=== PATIENT | male | born 1960 | race Caucasian/White ===

== ENCOUNTER 2022-09-08 09:54 | Outpatient (REF) | payer OTHER, SELFPAY ==
[2022-09-08 10:15] LABS: MANUAL DIFF FLAG NO
[2022-09-08 10:28] LABS: Basophils Percent Auto 0.6 % (0-2); Eosinophils Absolute Auto 0.2 X10*3/uL (0.0-0.4); Eosinophils Percent Auto 3.3 % (0-4); Hematocrit 44.5 % (42.0-52.0); Hemoglobin 15.3 g/dl (14.0-18.0); Imm Gran Abs Auto 0.02 X10*3/uL (0.00-0.03); Imm Gran Pct Auto 0.3 % (0.0-0.4); Lymphocytes Absolute Auto 1.3 X10*3/uL (1.2-4.9); Lymphocytes Percent Auto 18.5 % (20-40); Mean Corpuscular HGB Conc 34.4 g/dl (31.0-36.0); Mean Corpuscular Hemoglobin 28.4 pg (27.0-33.0); Mean Corpuscular Volume 82.6 fL (80.0-98.0); Mean Platelet Volume 9.7 fL (9.4-12.4); Monocytes Absolute Auto 0.5 X10*3/uL (0.1-1.2); Monocytes Percent Auto 7.3 % (2-11); Neutrophils Absolute Auto 5.1 x10*3/uL (2.0-8.3); Platelet Count 266 X10*3/uL (160-400); Red Blood Count 5.39 X10*6/uL (4.60-5.80); White Blood Count 7.3 X10*3/uL (4.8-10.8)
[2022-09-08 11:16] LABS: Anion Gap 11 (12-20); Blood Urea Nitrogen 23 mg/dL (9-16); Calcium 9.5 mg/dL (8.4-10.2); Carbon Dioxide 27 mmol/L (22-29); Chloride 108 mmol/L (96-108); Estimated Glomerular Filt Rate 42; Glucose Random 173 mg/dL (60-115); Potassium 4.4 mmol/L (3.3-5.1); Sodium 142 mmol/L (135-145)
[2022-09-11 15:54] LABS: Calcium (PTHI) 9.4 mg/dL (8.6-10.3); PTHI 194 pg/mL (16-77)
[2022-09-13 00:38] LABS: Prot Elec - Albumin 4.2 g/dL (3.8-4.8); Prot Elec - Alpha1 0.4 g/dL (0.2-0.3); Prot Elec - Alpha2 0.8 g/dL (0.5-0.9); Prot Elec - Beta 1 0.5 g/dL (0.4-0.6); Prot Elec - Beta 2 0.4 g/dL (0.2-0.5); Prot Elec - Total Protein 7.2 g/dL (6.1-8.1)
== END 2022-09-08 09:55 | disposition home or self-care (01) ==
LOC: HO.LAB 09:54
PROVIDERS: PCP Family Medicine; Visit Provider Internal Medicine Hypertension Specialist
DX: N18.31 Chronic kidney disease, stage 3a (principal)
CPT/HCPCS: 36415; 80048; 83970; 84165; 85025

== ENCOUNTER 2022-11-16 13:57 | Outpatient (REF) | payer OTHER, SELFPAY ==
[2022-11-16 16:30] LABS: Anion Gap 14 (12-20); Blood Urea Nitrogen 17 mg/dL (9-16); Calcium 9.4 mg/dL (8.4-10.2); Carbon Dioxide 22 mmol/L (22-29); Chloride 109 mmol/L (96-108); Estimated Glomerular Filt Rate 51; Glucose Random 117 mg/dL (60-115); Potassium 3.9 mmol/L (3.3-5.1); Sodium 141 mmol/L (135-145)
== END 2022-11-16 13:58 | disposition home or self-care (01) ==
LOC: HO.LAB 13:57
PROVIDERS: PCP Family Medicine; Visit Provider Internal Medicine Hypertension Specialist
DX: N18.31 Chronic kidney disease, stage 3a (principal)
CPT/HCPCS: 36415; 80048

== ENCOUNTER → 2022-11-28 11:48 | Outpatient (BNVA) | payer OTHER, SELFPAY | PROVIDERS: PCP Family Medicine; Visit Provider Nurse Practitioner ==

== ENCOUNTER 2023-05-15 11:40 | Day surgery (SDC) | payer OTHER, SELFPAY ==
--- NOTE | 2023-05-14 09:26 | HO.ANESPROP2 ---
Documented by User: Camilla Torrez NP 05/14/23 09:28 HPI - Anesthesia Eval Consult details Narrative: 62yo M for Colonoscopy Anesthesia Pre-Procedure Meds Is the patient on any of the following meds?: Dulaglutide (Trulicity) PMFSH Active Problems Active Problems: All Active Problems (Updated 11/28/22 @ 11:56 by KENNEY García) Pre-op examination (Acute) Chronic, continuous use of opioids (Acute) Chronic pain syndrome (Acute) Depression (Acute) Chronic kidney disease, stage 3 (Acute) High cholesterol (Acute) Diabetes (Acute) Hypertension (Acute) Asthma (Acute) JOSEPH (obstructive sleep apnea) (Acute) Past Medical History Medical History Chronic, continuous use of opioids Chronic pain syndrome Depression Chronic kidney disease, stage 3 High cholesterol Diabetes Hypertension Asthma JOSEPH (obstructive sleep apnea) Surgical History Surgical History History of total left hip replacement H/O shoulder surgery H/O colonoscopy Social History Social History (Updated 11/28/22 @ 12:05 by Lanny Chinchilla [facility]) Alcohol intake: former Patient Tobacco Use Status: Never used Tobacco Are you DNR?: No Advance Directives: No Advance Directives Information Provided: Yes Nutrition Risks: No Nutritional Risk Meds Allergies Allergy/AdvReac Type Severity Reaction Status Date / Time lisinopril Allergy Severe Anaphylaxis Verified 05/15/23 13:32 shellfish derived Allergy Severe Anaphylaxis Verified 05/15/23 13:32 SOLO Inhibitors Allergy Unknown Unknown Verified 05/15/23 13:32 Home Medications Medication Instructions Recorded Confirmed Last Taken Type albuterol sulfate 90 mcg/actuation 2 puff inhalation Q6H PRN 11/28/22 05/15/23 Unknown History aerosol inhaler Respiratory Distress atorvastatin 20 mg tablet (Lipitor) 20 mg PO DAILY 11/28/22 05/15/23 Unknown History dulaglutide 3 mg/0.5 mL 3 mg subcut QWEEK 11/28/22 05/15/23 05/07/23 History subcutaneous pen injector (Trulicity) empagliflozin 25 mg-metformin ER 1 tab PO DAILY 11/28/22 05/15/23 Unknown History 1,000 mg tablet,extended release 24hr epinephrine 0.3 mg/0.3 mL 0.3 mg IM Q10M PRN Anaphylaxis 11/28/22 05/15/23 Unknown History injection syringe fluoxetine 40 mg capsule 40 mg PO DAILY 11/28/22 05/15/23 Unknown History hydrochlorothiazide 25 mg tablet 25 mg PO QAM 11/28/22 05/15/23 Unknown History insulin glargine 100 unit/mL 20 unit subcut DAILY 11/28/22 05/15/23 Unknown History subcutaneous solution (Lantus U-100 Insulin) losartan 25 mg tablet 25 mg PO DAILY 11/28/22 05/15/23 Unknown History oxycodone-acetaminophen 5 mg-325 1 tab PO TID PRN Pain 11/28/22 05/15/23 Unknown History mg tablet (Percocet) risperidone 0.5 mg tablet 0.5 mg PO DAILY 11/28/22 05/15/23 Unknown History Exam Pertinent Lab Results Pertinent Lab Results: Laboratory Tests 11/16/22 14:06 Sodium 141 Potassium 3.9 Chloride 109 H Carbon Dioxide 22 BUN 17 H Creatinine 1.40 Assessment and Plan Assessment Anesthesia Assessment: Chart Reviewed Documented by User: Leo Chen MD 05/17/23 07:07 HPI - Anesthesia Eval Anesthesia Pre-Procedure Meds If Yes to any meds - educate patient: Pt education - increased risk of aspiration PMFSH Past Medical History Medical History Chronic, continuous use of opioids Chronic pain syndrome Depression Chronic kidney disease, stage 3 High cholesterol Diabetes Hypertension Asthma JOSEPH (obstructive sleep apnea) Surgical History Surgical History History of total left hip replacement H/O shoulder surgery H/O colonoscopy Social History Social History (Updated 11/28/22 @ 12:05 by GILES Jacob) Alcohol intake: former Patient Tobacco Use Status: Never used Tobacco Are you DNR?: No Advance Directives: No Advance Directives Information Provided: Yes Nutrition Risks: No Nutritional Risk Meds Allergies Allergy/AdvReac Type Severity Reaction Status Date / Time lisinopril Allergy Severe Anaphylaxis Verified 05/15/23 13:32 shellfish derived Allergy Severe Anaphylaxis Verified 05/15/23 13:32 SOLO Inhibitors Allergy Unknown Unknown Verified 05/15/23 13:32 Home Medications Medication Instructions Recorded Confirmed Last Taken Type albuterol sulfate 90 mcg/actuation 2 puff inhalation Q6H PRN 11/28/22 05/15/23 Unknown History aerosol inhaler Respiratory Distress atorvastatin 20 mg tablet (Lipitor) 20 mg PO DAILY 11/28/22 05/15/23 Unknown History dulaglutide 3 mg/0.5 mL 3 mg subcut QWEEK 11/28/22 05/15/23 05/07/23 History subcutaneous pen injector (Trulicity) empagliflozin 25 mg-metformin ER 1 tab PO DAILY 11/28/22 05/15/23 Unknown History 1,000 mg tablet,extended release 24hr epinephrine 0.3 mg/0.3 mL 0.3 mg IM Q10M PRN Anaphylaxis 11/28/22 05/15/23 Unknown History injection syringe fluoxetine 40 mg capsule 40 mg PO DAILY 11/28/22 05/15/23 Unknown History hydrochlorothiazide 25 mg tablet 25 mg PO QAM 11/28/22 05/15/23 Unknown History insulin glargine 100 unit/mL 20 unit subcut DAILY 11/28/22 05/15/23 Unknown History subcutaneous solution (Lantus U-100 Insulin) losartan 25 mg tablet 25 mg PO DAILY 11/28/22 05/15/23 Unknown History oxycodone-acetaminophen 5 mg-325 1 tab PO TID PRN Pain 11/28/22 05/15/23 Unknown History mg tablet (Percocet) risperidone 0.5 mg tablet 0.5 mg PO DAILY 11/28/22 05/15/23 Unknown History
[2023-05-15 12:32] VITALS: BMI 27.7
[2023-05-15] MEDS: Lactated Ringers 1,000 ML 100 ML IVCONT (12:40)
[2023-05-15 13:08] LABS: Glucose, Whole Blood 75 mg/dL (60-115)
--- NOTE | 2023-05-15 13:14 | PC.NURSE ---
patient poc was 75. patient is asymptomatic in short stay. dr gupta updated that patient becomes symptomatic around 68 per patient and patient has one hour until procedure time. decision made by dr. mejía to hang dextrose 5% [address] mejía gave order to pharmacy. bilingual interpreter present to educate patient.
[2023-05-15] MEDS: Dextrose 5 % 50 ML 25 ML IV (13:16)
--- NOTE | 2023-05-15 13:17 | P.HPSUR_ITS ---
Pre-Procedural Eval Section A Date of Service: 05/15/23 The patient is an INPATIENT: No The History & Physical has been completed within 30 days and I have reviewed it.: No Section B Chief Complaint: Colon cancer screen Relevant Family History (Specify if Yes): No Relevant Social History: None Present Medications: see Short Stay Collaborative assessment Medical History: Significant History (JOSEPH Asthma Hypertension Diabetes High cholesterol Chronic kidney disease stage 3 Depression Chronic opioid use- prescriptive. Chronic pain low back and shoulders.) History of Previous Operations: Relevant previous surgery/procedure and date(s) (H/O colonoscopy H/O shoulder surgery History of total left hip replacement) Allergies: Allergies Allergy/AdvReac Type Severity Reaction Status Date / Time lisinopril Allergy Severe Anaphylaxis Verified 11/28/22 12:05 SOLO Inhibitors Allergy Unknown Unknown Verified 11/28/22 12:05 shellfish derived Allergy Unknown Unknown Verified 11/28/22 12:05 Review of Systems Sugical H&P ROS: Negative: Constitution, Cardiovascular, Respiratory and Gastrointestinal Exam Surgical H&P Exam: Normal: Heart, Normal: Lungs, Normal: Extremities and Normal: Abdomen Plan Diagnosis/Plan: Unchanged I have reviewed the history and physical and performed a pertinent physical examination on my patient. No changes have occurred unless specified. Time Spent With Patient Time: Total time managing care of this patient today ____ minutes.
--- NOTE | 2023-05-15 13:17 | P.OP_ITS ---
Operative Note Operative Note Date of Service: 05/15/23 Narrative: COLONOSCOPY TILL CECUM WITH SNARE POLYPECTOMY, SUBMUCOSAL INJECTION AND HEMOCLIP PLACEMENT Pre-op diagnosis: Colon cancer screening Post-op diagnosis:? Colon polyps, diverticulosis, hemorrhoids Endoscopist:? Shaista Cook MD Anesthesia:?MAC Consent: Indications for the procedure and potential complications of bleeding, perforation, reaction to medications and missed diagnosis were discussed with the patient and informed consent was obtained. Instrument: Olympus PCF H 190 L variable stiffness pediatric colonoscope Monitoring: Vital signs and clinical assessment, intermittent blood pressure monitoring, continuous EKG monitoring, Pulse oximetry and Carbon Dioxide monitoring were done throughout the procedure. Please see anesthesia flowsheet. Colon withdrawl time was 23 minutes. Procedure: The patient was placed in the left lateral decubitis position and pre-procedure medications were administered. After a digital rectal examination of the ano-rectum, the video colonoscope was inserted into the rectum and advanced through the colon to the cecum. The colonoscope was slowly withdrawn in a retrograde panoramic fashion and the colon mucosa was carefully examined including a retroflexed view of the rectum. Findings and interventions are described below. Procedure Difficulty: Without difficulty Findings: Terminal Ileum: Not evaluated Cecum: Two 4-5 mm sessile polyps - removed with a cold snare Ascending Colon: A 15 to 18 mm sessile polyp in the proximal AC at 75 cms. Polyp was raised with 3 cc of Eleview and removed with a hot snare. Polypectomy site was closed with 1 hemoclip Transverse Colon: Normal Descending Colon: Moderate diverticulosis Sigmoid Colon: A 5-6 mm sessile polyp - removed with a cold snare. Moderate diverticulosis Rectum: Normal Ano-rectum: Moderate internal hemorrhoids Colon preparation: Good after copious irrigation [place] Bowel Preparation Scale Right colon; 3 Transverse colon: 3 Left colon; 3 (0 = Unprepared colon segment with mucosa not seen due to solid stool that cannot be cleared. 1 = Portion of mucosa of the colon segment seen, but other areas of the colon segment not well seen due to staining, residual stool and/or opaque liquid. 2 = Minor amount of residual staining, small fragments of stool and/or opaque liquid, but mucosa of colon segment seen well. 3 = Entire mucosa of colon segment seen well with no residual staining, small fragments of stool or opaque liquid) Impression and Post Procedure Diagnosis: Colonoscopy Findings: Three small and one medium sized polyps removed Moderate diverticulosis seen in the lefy colon Moderate hemorrhoids on retroflexed exam. Plan: Await pathology results Patient has an appointment on 05/29/23 in the GI Clinic with Estelita Min NP. Repeat Colonoscopy interval based on path results - in 2-3 years if polyps are adenomatous and 10 years if polyps are hyperplastic. Above findings were reviewed with the patient and colon polyps and diverticulosis handouts were given in the discharge area
[2023-05-15 13:19] VITALS: BP 139/76; PULSE 93; RESP 18; TEMP 36.6; O2SAT 97
--- NOTE | 2023-05-15 13:27 | PC.NURSE ---
dr. mejía stated no follow up poc necessary after dextrose infustion.
[2023-05-15 14:54] VITALS: BP 100/63; PULSE 82; RESP 16; TEMP 36.3; O2SAT 97
[2023-05-15 15:09] VITALS: BP 118/68; PULSE 81; RESP 16; TEMP 36.3; O2SAT 100
== END 2023-05-15 15:35 | disposition home or self-care (01) ==
PROVIDERS: PCP Family Medicine; Visit Provider Internal Medicine Gastroenterology
PROC: 0DJD8ZZ Inspection of Lower Intestinal Tract, Via Natural or Artificial Opening Endoscopic (ICD-10-PCS; CPT 45378; principal; 2023-05-15 12:50)
DX: Z12.11 Encounter for screening for malignant neoplasm of colon (principal); D12.0 Benign neoplasm of cecum; D12.2 Benign neoplasm of ascending colon; D12.5 Benign neoplasm of sigmoid colon; K57.30 Diverticulosis of large intestine without perforation or abscess without bleeding; K64.8 Other hemorrhoids; E11.22 Type 2 diabetes mellitus with diabetic chronic kidney disease; I12.9 Hypertensive chronic kidney disease with stage 1 through stage 4 chronic kidney disease, or unspecified chronic kidney disease; N18.30 Chronic kidney disease, stage 3 unspecified; E78.5 Hyperlipidemia, unspecified; F11.20 Opioid dependence, uncomplicated; Z79.4 Long term (current) use of insulin; Z79.899 Other long term (current) drug therapy; Z79.02 Long term (current) use of antithrombotics/antiplatelets; Z79.85 Long-term (current) use of injectable non-insulin antidiabetic drugs
CPT/HCPCS: 45385; 45381; 82947; 88305; J2704

== ENCOUNTER → 2023-05-15 11:40 | Outpatient (BNV) | payer OTHER, SELFPAY | PROVIDERS: PCP Family Medicine; Visit Provider Internal Medicine Gastroenterology | DX: Z12.11 Encounter for screening for malignant neoplasm of colon (principal); D12.2 Benign neoplasm of ascending colon; D12.0 Benign neoplasm of cecum; K57.90 Diverticulosis of intestine, part unspecified, without perforation or abscess without bleeding | CPT/HCPCS: 45381; 45385 ==

== ENCOUNTER 2023-05-29 11:56 | Outpatient (AMB) | payer OTHER, SELFPAY ==
--- NOTE | 2023-05-29 11:57 | A.OFFVIS_ITS ---
Intake Vital Signs 05/29/23 12:19 Height 5 ft Weight 144 lb BMI 28.1 BP 136/71 Blood Pressure Location Lt brachial Position Sitting Pulse 75 Intake Visit Reasons: s/p colon Intake Note: Patient follow up for Colonoscopy results. Patient denies any other GI issues. Advertising Photographer Required: Yes Advertising Photographer Name: [facility] Accompanied by: Self / Same As Patient Allergies lisinopril Allergy (Severe, Verified 05/29/23 12:16) Anaphylaxis shellfish derived Allergy (Severe, Verified 05/29/23 12:16) Anaphylaxis SOLO Inhibitors Allergy (Unknown, Verified 05/29/23 12:16) Unknown HPI s/p colon HPI Details Assessment & Plan (1) Pre-op examination: Code(s): Z01.818 - Encounter for other preprocedural examination Plan: [place]er #[id number] Omayra He does not know his medications and this was not included in his med list. He denies any bowel or upper GI problems. There are no prior problems with or sedation. His JOSEPH and asthma are well controlled and he denies cardiac problems. No ID problems. There is no known FHX of CRC or polyps. (2) JOSEPH (obstructive sleep apnea): Code(s): G47.33 - Obstructive sleep apnea (adult) (pediatric) (3) Chronic kidney disease, stage 3: Code(s): N18.30 - Chronic kidney disease, stage 3 unspecified (4) Chronic, continuous use of opioids: Code(s): F11.90 - Opioid use, unspecified, uncomplicated Orders: Orders Colonoscopy - GI U se Only Today Z01.818 - Encounte r for other prepro cedural examinatio n Medications: New peg 3350-electroly geetha 236-22.74-6.74 -5.86 gram (Golyt shasha) until feca l effluent is princess r; do not exceed a total volume of 2 ,000 mL 240 mL PO Q10M 1 day 4,000 mL 0RF Z12.11 - Encounter for screening for malignant neoplas m of colon COLONOSCOPY 05/16/23 Findings: Terminal Ileum: Not evaluated Cecum: Two 4-5 mm sessile polyps - removed with a cold snare Ascending Colon: A 15 to 18 mm sessile polyp in the proximal AC at 75 cms. Polyp was raised with 3 cc of Eleview and removed with a hot snare. Polypectomy site was closed with 1 hemoclip Transverse Colon: Normal Descending Colon: Moderate diverticulosis Sigmoid Colon: A 5-6 mm sessile polyp - removed with a cold snare. Moderate diverticulosis Rectum: Normal Ano-rectum: Moderate internal hemorrhoids Colon preparation: Good after copious irrigation Impression and Post Procedure Diagnosis: Colonoscopy Findings: Three small and one medium sized polyps removed Moderate diverticulosis seen in the lefy colon Moderate hemorrhoids on retroflexed exam. Plan: Await pathology results Patient has an appointment on 05/29/23 in the GI Clinic with Estelita Min NP. Repeat Colonoscopy interval based on path results - in 2-3 years if polyps are adenomatous and 10 years if polyps are hyperplastic. BIOPSY Received: 05/16/23 Diagnosis A. Colon, ascending, polypectomy: Fragments of tubular adenoma; negative for high-grade dysplasia or carcinoma. B. Cecum, polypectomy: Fragments of tubular adenoma; negative for high-grade dysplasia or carcinoma. C. Colon, sigmoid, polypectomy: Tubular adenoma; negative for high-grade dysplasia or carcinoma . TODAY'S VISIT [place] Islander #Diana Bey He is agreeable to a 2 year recall. The procedure was well tolerated. The results were explained and the patient is agreeable to the follow-up interval as stated. The bowel pattern has returned to normal. Education was provided to tell any 1st degree relatives about their findings to be sure that they are screened by age 45. Educated that they will be put on a recall list when it is time for their repeat scope but should they move out of state or away from the hospital they will need to remember along with their primary to repeat the procedure in a timely fashion to avoid any adverse complications. [facility] Medical History (Updated 05/29/23 @ 11:58 by KENNEY García) Chronic, continuous use of opioids Chronic pain syndrome Depression Chronic kidney disease, stage 3 High cholesterol Diabetes Hypertension Asthma JOSEPH (obstructive sleep apnea) Surgical History History of total left hip replacement H/O shoulder surgery H/O colonoscopy Social History Alcohol intake: former Patient Tobacco Use Status: Never used Tobacco Review of Systems Const Denies fatigue, Denies fever(s), Denies night sweats, Denies poor appetite and Denies weight loss ENT Reports Normal hearing present, Denies dental pain, Denies dysphagia, Denies hearing loss, Denies mouth pain, Denies odynophagia, Denies throat swelling, Denies tongue swelling and Reports other (Dentition adequate) Card Reports no additional complaints Resp Reports no additional complaints GI Details: Denies abdominal pain, Denies melena, Denies bloating, Denies hematochezia, Denies constipation, Denies GI cramping, Denies dysphagia, Denies excessive flatus, Denies early satiety, Denies heartburn, Denies diarrhea, Denies nausea, Denies odynophagia, Denies vomiting and Denies hematemesis Skin/Breast Denies pruritus, Denies lesions, Denies rash and Denies jaundice Neuro Reports Normal hearing present and Denies Abnormal speech present Endo Denies fatigue Aller/Immun Denies throat swelling and Denies tongue swelling Physical Exam Vital Signs: Last Vital Signs Pulse 75 05/29/23 12:19 BP 136/71 05/29/23 12:19 BMI result Body Mass Index 28.1 Const General: cooperative, no acute distress, well developed and well groomed Nutritional Appearance: average body habitus and well nourished Orientation/consciousness: oriented to person, oriented to place and oriented to time Limitations: language barrier HEENT Head: Yes normocephalic and Yes atraumatic Eyes General: appearance normal, both eyes and all related structures Pupils: Equal, round and reactive pupils present Neck Neck: Yes normal visual inspection and Yes no lymphadenopathy Thyroid: Thyroid normal Resp Effort & Inspection: normal respiratory effort and able to speak in complete sentences Auscultation: clear to auscultation bilaterally Cardio Rate: regular rate Rhythm: regular rhythm Heart sounds: Normal, physiologic split S2 sound present Peripheral pulses: radial pulses present and posterior tibial pulses present GI Inspection: No distended and No Abdominal panniculus present Palpation (GI): Soft to palpation, nontender, no guarding, not rigid and No hepatosplenomegaly present Percussion: Yes normal to percussion Auscultation: normal bowel sounds Rectal Exam - Male: Yes deferred Skin General skin exam: no rashes or lesions noted, turgor normal, skin not dry, no jaundice, No spider nevi and no striae Rashes: no rashes Nails: normal Neuro General: oriented to person, oriented to place and oriented to time Cranial nerves: Yes Equal, round and reactive pupils present and Yes Normal hearing present Speech: No Abnormal speech present Extrem General: Yes normal to inspection, No clubbing, No cyanosis and No edema Psych Appearance: grossly normal and well kempt Mental Status: mental status grossly normal Speech and movement: Normal speech and movement present Affect: normal affect Attitude: cooperative Thought process: Normal thought process present and not confabulating Thought content: Normal thought content present Insight: Fair insight present (Psych) Judgement: Fair judgement present (Psych) Results Reviewed Results Reviewed: COLONOSCOPY 05/16/23 Findings: Terminal Ileum: Not evaluated Cecum: Two 4-5 mm sessile polyps - removed with a cold snare Ascending Colon: A 15 to 18 mm sessile polyp in the proximal AC at 75 cms. Polyp was raised with 3 cc of Eleview and removed with a hot snare. Polypectomy site was closed with 1 hemoclip Transverse Colon: Normal Descending Colon: Moderate diverticulosis Sigmoid Colon: A 5-6 mm sessile polyp - removed with a cold snare. Moderate diverticulosis Rectum: Normal Ano-rectum: Moderate internal hemorrhoids Colon preparation: Good after copious irrigation Impression and Post Procedure Diagnosis: Colonoscopy Findings: Three small and one medium sized polyps removed Moderate diverticulosis seen in the lefy colon Moderate hemorrhoids on retroflexed exam. Plan: Await pathology results Patient has an appointment on 05/29/23 in the GI Clinic with Estelita Min NP. Repeat Colonoscopy interval based on path results - in 2-3 years if polyps are adenomatous and 10 years if polyps are hyperplastic. BIOPSY Received: 05/16/23 Diagnosis A. Colon, ascending, polypectomy: Fragments of tubular adenoma; negative for high-grade dysplasia or carcinoma. B. Cecum, polypectomy: Fragments of tubular adenoma; negative for high-grade dysplasia or carcinoma. C. Colon, sigmoid, polypectomy: Tubular adenoma; negative for high-grade dysplasia or carcinoma Assessment & Plan Assessment & Plan (1) Tubular adenoma of colon: Comment: 2023 scope= 3 TA is repeat in 2-3 years Code(s): D12.6 - Benign neoplasm of colon, unspecified Plan [place]er #Diana Live He is agreeable to a 2 year recall. The procedure was well tolerated. The results were explained and the patient is agreeable to the follow-up interval as stated. The bowel pattern has returned to normal. Education was provided to tell any 1st degree relatives about their findings to be sure that they are screened by age 45. Educated that they will be put on a recall list when it is time for their repeat scope but should they move out of state or away from the hospital they will need to remember along with their primary to repeat the procedure in a timely fashion to avoid any adverse complications. Coding Level of Care Code Est Pt Level 3 (77809) Diagnoses Tubular adenoma of colon D12.6
[2023-05-29 12:19] VITALS: BP 136/71; PULSE 75; BMI 28.1
== END 2023-05-29 13:28 | disposition home or self-care (01) ==
PROVIDERS: PCP Family Medicine; Visit Provider Nurse Practitioner
DX: D12.6 Benign neoplasm of colon, unspecified (principal)
CPT/HCPCS: 99213

== ENCOUNTER → 2023-05-29 11:56 | Outpatient (BNVA) | payer OTHER, SELFPAY | PROVIDERS: PCP Family Medicine; Visit Provider Nurse Practitioner | DX: D12.6 Benign neoplasm of colon, unspecified (principal) | CPT/HCPCS: 99212 ==

== ENCOUNTER 2023-09-24 09:50 | Outpatient (REF) | payer OTHER, SELFPAY ==
[2023-09-24 12:26] LABS: Estimated Average Glucose 146 mg/dL; Hemoglobin A1c % 6.7 % (<6.0)
[2023-09-24 12:26] LABS: Alanine Aminotransferase 31 U/L (0-40); Albumin Level 4.2 g/dL (3.5-5.0); Alkaline Phosphatase 102 U/L (39-117); Anion Gap 10 (12-20); Aspartate Amino Transferase 24 U/L (5-37); Bilirubin Direct 0.5 mg/dL (0.0-0.5); Bilirubin Total 1.4 mg/dL (0.0-1.0); Blood Urea Nitrogen 19 mg/dL (9-16); Calcium 9.3 mg/dL (8.4-10.2); Carbon Dioxide 24 mmol/L (22-29); Chloride 111 mmol/L (96-108); Cholesterol 89 mg/dL (<200); Estimated Glomerular Filt Rate 44; Glucose Random 109 mg/dL (60-115); HDL Cholesterol 29 mg/dL (>40); LDL Cholesterol Calculated 47 mg/dL (<100); Potassium 4.2 mmol/L (3.3-5.1); Sodium 141 mmol/L (135-145); Total Protein 7.1 g/dL (6.5-8.0); Triglycerides 67 mg/dL (<150)
[2023-09-24 12:30] LABS: Creatinine Urine 61.19 mg/dL; Microalbum/Creatinine Ratio Ur 21.2 ug/mg cr (<30)
== END 2023-09-24 09:51 | disposition home or self-care (01) ==
LOC: HO.HHCL 09:50
PROVIDERS: Visit Provider Family Medicine
DX: E11.21 Type 2 diabetes mellitus with diabetic nephropathy (principal); E78.5 Hyperlipidemia, unspecified; Z79.4 Long term (current) use of insulin
CPT/HCPCS: 36415; 80048; 80061; 80076; 82043; 82570; 83036

== ENCOUNTER 2024-05-08 14:08 | Outpatient (REF) | payer OTHER, SELFPAY ==
[2024-05-08 14:35] LABS: MANUAL DIFF FLAG NO
[2024-05-08 15:09] LABS: Basophils Absolute Auto 0.1 X10*3/uL (0.0-0.2); Basophils Percent Auto 0.9 % (0-2); Eosinophils Absolute Auto 0.3 X10*3/uL (0.0-0.4); Hematocrit 40.4 % (42.0-52.0); Hemoglobin 13.9 g/dl (14.0-18.0); Imm Gran Abs Auto 0.02 X10*3/uL (0.00-0.03); Imm Gran Pct Auto 0.3 % (0.0-0.4); Lymphocytes Absolute Auto 1.4 X10*3/uL (1.2-4.9); Lymphocytes Percent Auto 21.3 % (20-40); Mean Corpuscular HGB Conc 34.4 g/dl (31.0-36.0); Mean Corpuscular Hemoglobin 28.9 pg (27.0-33.0); Mean Platelet Volume 9.8 fL (9.4-12.4); Monocytes Absolute Auto 0.6 X10*3/uL (0.1-1.2); Monocytes Percent Auto 8.8 % (2-11); Neutrophils Absolute Auto 4.4 x10*3/uL (2.0-8.3); Neutrophils Percent Auto 64.7 % (45-73); Platelet Count 255 X10*3/uL (160-400); Red Blood Count 4.81 X10*6/uL (4.60-5.80); White Blood Count 6.7 X10*3/uL (4.8-10.8)
[2024-05-08 15:29] LABS: Appearance Urine Clear; Color Urine Yellow; Glucose Urine UA >=1000 mg/dL (Negative); Leukocyte Esterase Urine Negative (Negative); Nitrite Urine Negative (Negative); UMIC TRIGGER UA YES; Urine Blood Negative (Negative); Urine Ketones Negative (Negative); Urine Protein Negative (Neg-Trace)
[2024-05-08 15:34] LABS: Bacteria Urine None Seen (None Seen); Hyaline Casts Urine 0-2 /LPF (0-2); RBC Urine 0-2 /HPF (0-2); Squamous Epithelial Cell Urine 0-2 /HPF (0-2); WBC Urine 0-5 /HPF (0-5)
[2024-05-08 15:38] LABS: Anion Gap 11 (12-20); Blood Urea Nitrogen 19 mg/dL (9-16); Calcium 9.1 mg/dL (8.4-10.2); Carbon Dioxide 25 mmol/L (22-29); Chloride 111 mmol/L (96-108); Estimated Glomerular Filt Rate 50; Glucose Random 183 mg/dL (60-115); Parathyroid Hormone Intact 239.6 pg/mL (8.7-77.1); Phosphorus 3.2 mg/dL (2.7-4.5); Potassium 4.3 mmol/L (3.3-5.1); Sodium 143 mmol/L (135-145)
[2024-05-08 15:53] LABS: Vitamin D 25-OH Total 11.9 ng/mL (>30)
[2024-05-08 16:10] LABS: Creatinine Urine 48.41 mg/dL; Microalbum/Creatinine Ratio Ur 14.4 ug/mg cr (<30); Total Protein Urine Random < 7 mg/dL (<12)
[2024-05-12 09:55] LABS: Cystatin C 1.61 (H); eGFR (Cystatin C) 41 (L)
== END 2024-05-08 14:09 | disposition home or self-care (01) ==
LOC: HO.LAB 14:08
PROVIDERS: PCP Family Medicine; Visit Provider Internal Medicine
DX: N18.31 Chronic kidney disease, stage 3a (principal)
CPT/HCPCS: 36415; 80048; 81001; 82043; 82306; 82570; 82610; 83735; 83970; 84100; 84156; 85025

== ENCOUNTER 2024-09-16 12:33 | Outpatient (REF) | payer OTHER, SELFPAY ==
--- OUTSIDE RECORDS SUMMARY | 2024-09-16 12:38 | XMS_ITS | Encounter Summary ---
Author Organization [employer] [facility] Address [address] [place] [address] Care Team Providers Care Reclamation Supervisor Name Role Phone Johana Anderson MD Primary Care Provider +- [phone] Liliana George PharmD Unavailable [phone] Encounter Details Date Type Department Care Team (Late st Contact Info) Description 04/06/2022 Orders Only [facility] [address] [place] [address] Melva Maier LPN Social History Tobacco Use Types Packs/Day Years Used Date Smoking Tobacco: Never Assessed Sex and Gender Information Value Date Recorded Sex Assigned at Male 02/20/2022 10:19 AM EDT Legal Sex Male 10:19 AM EDT Gender Identity Male 02/20/2022 10:19 AM EDT Sexual Orientation Choose not to disclose 2021 10:19 AM EDT documented as of this encounter Plan of Treatment Upcoming Encounters Date Type Department Care Team (Late st Contact Info) Description 09/19/2024 9:30 AM EDT Office Visit [facility] [address] [place] [id number] Johana Anderson MD [address] [place] [address] 11/14/2024 10:30 AM EDT Clinical Support [facility] [address] [place] [id number] Ada Lerma, PIOTR [address] [place] [address] documented as of this encounter Visit Diagnoses Not on filedocumented in this encounter Care Teams Reclamation Supervisor Relationship Specialty Start Date End Date Johana Anderson MD [address] [place] [address] PCP - General Family Medicine 04/23/18 Liliana George, DamirD [address] [place] [address] Pharmacist Internal Medicine 04/13/22 [facility] 04/13/22 documented as of this encounter
[2024-09-16 13:44] LABS: Estimated Average Glucose 160 mg/dL; Hemoglobin A1c % 7.2 % (<6.0)
[2024-09-16 13:59] LABS: Creatinine Urine 72.31 mg/dL; Microalbum/Creatinine Ratio Ur 16.5 ug/mg cr (<30)
[2024-09-16 14:07] LABS: Alanine Aminotransferase 61 U/L (0-40); Albumin Level 4.3 g/dL (3.5-5.0); Alkaline Phosphatase 110 U/L (39-117); Anion Gap 10 (12-20); Aspartate Amino Transferase 44 U/L (5-37); Bilirubin Direct 0.4 mg/dL (0.0-0.5); Bilirubin Total 1.6 mg/dL (0.0-1.0); Blood Urea Nitrogen 19 mg/dL (9-16); Calcium 9.1 mg/dL (8.4-10.2); Carbon Dioxide 26 mmol/L (22-29); Chloride 107 mmol/L (96-108); Cholesterol 121 mg/dL (<200); Estimated Glomerular Filt Rate 47; Glucose Random 103 mg/dL (60-115); HDL Cholesterol 27 mg/dL (>40); LDL Cholesterol Calculated 68 mg/dL (<100); Potassium 4.2 mmol/L (3.3-5.1); Sodium 139 mmol/L (135-145); Triglycerides 134 mg/dL (<150)
== END 2024-09-16 12:34 | disposition home or self-care (01) ==
LOC: HO.HHCL 12:33
PROVIDERS: Visit Provider Family Medicine
DX: E11.21 Type 2 diabetes mellitus with diabetic nephropathy (principal); Z79.4 Long term (current) use of insulin
CPT/HCPCS: 36415; 80048; 80061; 80076; 82043; 82570; 83036

== ENCOUNTER 2024-09-19 09:54 | Outpatient (REF) | payer OTHER, SELFPAY ==
--- OUTSIDE RECORDS SUMMARY | 2024-09-19 10:21 | XMS_ITS | Encounter Summary ---
Author Organization [employer] [facility] Address [address] [place] [address] Care Team Providers Care Alarm Security Or Surveillance Monitor Name Role Phone Johana Anderson MD Primary Care Provider + [phone] Liliana George PharmD Unavailable [phone] Yousif Trinidad MD Unavailable July Unavailable Stuart Caal MD Unavailable [phone] Sudheer Ellison MD Unavailable [phone] Encounter Details Date Type Department Care Team (Late st Contact Info) Description 04/06/2022 Orders Only [facility] [address] [place], [place] [id number] Melva Maier LPN Social History Tobacco Use [...] Care Team (Late st Contact Info) Description 11/14/2024 10:30 AM EDT Clinical Support [facility] [address] [place] [address] Ada Lerma, PIOTR [address] [place] [address] documented as of this encounter Visit Diagnoses Not on filedocumented in this encounter Care Teams Alarm Security Or Surveillance Monitor Relationship Specialty Start Date End Date Johana Anderson MD [address] [place] [address] PCP - General Family Medicine 04/23/18 Liliana George, Ranjan [address] [place] [address] Pharmacist Internal Medicine 04/13/22 Yousif Trinidad MD [address] [place] [phone] Nephrology 09/19/[address] [place] [address] Gastroenterology 09/19/24 Stuart Caal MD [address] [place] [address] Cardiology 09/19/24 Sudheer Ellison MD [address] [place] [address] Ophthalmology 09/19/24 [facility] 04/13/22 09/18/24 [facility] Orthopaedic Surgery 09/19/24 documented as of this encounter
[2024-09-19 11:52] LABS: Hematocrit 43.3 % (42.0-52.0); Hemoglobin 14.7 g/dl (14.0-18.0); Mean Corpuscular HGB Conc 33.9 g/dl (31.0-36.0); Mean Corpuscular Hemoglobin 28.5 pg (27.0-33.0); Mean Corpuscular Volume 84.1 fL (80.0-98.0); Mean Platelet Volume 9.9 fL (9.4-12.4); Platelet Count 255 X10*3/uL (160-400); Red Blood Count 5.15 X10*6/uL (4.60-5.80); Red Cell Distribution Width 13.1 % (11.0-16.0); White Blood Count 6.6 X10*3/uL (4.8-10.8)
[2024-09-19 13:04] LABS: HBS Num1 263.68 mIU/mL (0-7.99); HBc Num1 0.38 S/CO (0.00-0.79); HBsAGNum1 0.41 S/CO (0.00-0.99); Hepatitis A Antibody IgM 0.15 Index (0-0.79); Hepatitis B Core Antibody Nonreactive (Nonreactive); Hepatitis B Surface Antigen Negative (Negative); ~HepC Num1 0.24 S/CO (0.00-0.79); ~Hepatitis A Antibody IgM Nonreactive (Nonreactive); ~Hepatitis B Surface Antibody REACTIVE (Nonreactive); ~Hepatitis C Antibody Nonreactive (Nonreactive)
[2024-09-22 13:14] LABS: Alpha Fetoprotein 1.4 ng/mL (<6.1)
== END 2024-09-19 09:55 | disposition home or self-care (01) ==
LOC: HO.HHCL 09:54
PROVIDERS: Visit Provider Family Medicine
DX: R74.01 Elevation of levels of liver transaminase levels (principal)
CPT/HCPCS: 36415; 82105; 85027; 86704; 86706; 86709; 86803; 87340

== ENCOUNTER 2024-11-06 13:54 | Outpatient (REF) | payer OTHER, SELFPAY ==
[2024-11-06 14:20] LABS: MANUAL DIFF FLAG NO
--- OUTSIDE RECORDS SUMMARY | 2024-11-06 14:44 | XMS_ITS | Encounter Summary ---
Author Organization [employer] Address [address] [place] [address] Care Team Providers Care Group Account Director Name Role Phone Johana Anderson MD Primary Care Provider + [phone] Liliana George PharmD Unavailable [phone] Yousif Trinidad MD Unavailable [phone] July Unavailable Stuart Caal MD Unavailable [phone] Sudheer Ellison MD Unavailable [phone] Reason for Visit * Reason Comments Med Refill Encounter Details Date Type Department Care Team (Late st Contact Info) Description 10/25/2024 Refill [facility] [address] [place], [place] [phone] Johana Anderson MD [address] [place] [address] Mild intermittent asthma, uncomplicated Social History Tobacco Use Types Packs/Day Years Used Date Smoking Tobacco: Never Smokeless Tobacco: Never Depression Answer Date Recorded Patient Health Questionnaire-9 Score 0 09/19/2024 Patient Health Questionnaire-9 Score 0 09/19/2024 Last PHQ-9: Questionnaire Data Not on file 0 09/19/2024 Housing Stability Answer Date Recorded What is your housing situation today? I have adrian elder 09/27/[address] you li ve. Do you have problems with any of the following? None of the above 09/27/2023 Food Insecurity Answer Date Recorded Within the past 12 months, y ou worried that your food would run out before you got money to buy more: Never True 09/27/2023 Within the past 12 months,th e food you bought just didn't last and you didn't have enough money to get more: Never True 09/2023 Transportation Answer Date Recorded In the past 12 months, has l ack of transportation kept you from medical appts, meetings, work or from getting things needed for daily living? No 09/27/2023 Utilities Answer Date Recorded In the past 12 months, has t he electric, gas, oil or water company threatened to shut off services in your home? No 09/27/2023 Depression Answer Date Recorded Patient Health Questionnaire-2 Score 0 09/19/2024 Internet Access Answer Date Recorded Internet Access Q1 Yes 09/19/2024 Internet Access Q2 Not on file 09/19/2024 Sex and Gender Information Value Date Recorded [...] Description 11/14/2024 10:30 AM EDT Clinical Support [facility] [address] [place] [phone] Ada Lerma RN [address] [place] [address] documented as of this encounter Goals Goal Patient Goal Type Associated Problems Recent Progress Patient-Stated? Author Blood Pressure < 140/90 Blood Pressure 108/76(2024 9:06 AM EDT) No Piers-Gambl holland, Liliana, PharmD Hemoglobin A1c < 7 Result Component 7.2( 12:35 PM EDT) No Piers-Gambl e, Liliana, PharmD documented as of this encounter Visit Diagnoses Diagnosis Mild intermittent asthma, uncomplicated documented in this encounter Additional Health Concerns Assessment Noted Time PHQ-9 Depression Total Score: 0 09/20/19 9:06 AM EDT documented as of this encounter Care Teams Group Account Director Relationship Specialty Start Date End Date Johana Anderson MD [address] [place] [address] PCP - General Family Medicine 04/23/18 Liliana George, Ranjan [address] [place] [address] Pharmacist Internal Medicine 04/13/22 Yousif Trinidad MD [address] [place] [phone] Nephrology 09/19/24July [address] 3rd [place] [address] Gastroenterology 09/19/24 Stuart Caal MD [address] [place] [address] Cardiology 09/19/24 Sudheer Ellison MD [address] [place] [address] Ophthalmology 09/19/24 [facility] Orthopaedic Surgery 09/19/24 documented as of this encounter
[2024-11-06 15:10] LABS: Hematocrit 41.8 % (42.0-52.0); Hemoglobin 14.8 g/dl (14.0-18.0); Imm Gran Abs Auto 0.04 X10*3/uL (0.00-0.03); Imm Gran Pct Auto 0.5 % (0.0-0.4); Lymphocytes Absolute Auto 1.6 X10*3/uL (1.2-4.9); Mean Corpuscular HGB Conc 35.4 g/dl (31.0-36.0); Mean Corpuscular Hemoglobin 28.8 pg (27.0-33.0); Mean Corpuscular Volume 81.5 fL (80.0-98.0); NRBC Abs Auto 0.000 X10*3/uL (0.0-0.012); NRBC Pct Auto 0.0 /100WBC (0.0-0.2); Platelet Count 277 X10*3/uL (160-400); Red Blood Count 5.13 X10*6/uL (4.60-5.80); White Blood Count 7.5 X10*3/uL (4.8-10.8)
[2024-11-06 15:17] LABS: Appearance Urine Clear; Glucose Urine UA >=1000 mg/dL (Negative); PH 6.0 (5.0-9.0); Specific Gravity - Urine 1.020 (1.005-1.025); UMIC TRIGGER UA YES
[2024-11-06 15:43] LABS: Anion Gap 11 (12-20); Blood Urea Nitrogen 16 mg/dL (9-16); Calcium 9.2 mg/dL (8.4-10.2); Carbon Dioxide 26 mmol/L (22-29); Chloride 110 mmol/L (96-108); Estimated Glomerular Filt Rate 46; Magnesium 2.1 mg/dL (1.6-2.6); Potassium 4.4 mmol/L (3.3-5.1); Sodium 143 mmol/L (135-145); Uric Acid 5.0 mg/dL (3.4-7.0)
[2024-11-06 15:45] LABS: Parathyroid Hormone Intact 214.6 pg/mL (8.7-77.1)
[2024-11-06 15:46] LABS: Hemoglobin A1C 202.4634 umol/L; Total Hemoglobin (HGBA1C) 3797.0940 umol/L
[2024-11-06 16:16] LABS: Microalbum/Creatinine Ratio Ur 20.2 ug/mg cr (<30); Protein/Creatinine Ratio, Ur 0.12 (<0.2); Total Protein Urine Random 8 mg/dL (<12)
== END 2024-11-06 13:55 | disposition home or self-care (01) ==
LOC: HO.LAB 13:54
PROVIDERS: PCP Family Medicine; Visit Provider Internal Medicine
DX: E11.22 Type 2 diabetes mellitus with diabetic chronic kidney disease (principal); I12.9 Hypertensive chronic kidney disease with stage 1 through stage 4 chronic kidney disease, or unspecified chronic kidney disease; N18.31 Chronic kidney disease, stage 3a
CPT/HCPCS: 36415; 80048; 81001; 82043; 82306; 82570; 83036; 83735; 83970; 84100; 84156; 84550; 85025

== ENCOUNTER 2024-11-12 08:17 | Outpatient (REF) | payer OTHER, SELFPAY ==
--- NOTE | ~2024-11-12 | US_ITS ---
EXAMINATION: US ABDOMEN COMPLETE CLINICAL INFORMATION: Elevated LFTs.. COMPARISON: None available. TECHNIQUE: Real-time ultrasound of the abdomen using grayscale technique. FINDINGS: PANCREAS: No peripancreatic fluid collection. ABDOMINAL AORTA: The proximal, mid, and distal segments are normal in caliber. INFERIOR VENA CAVA: Visualized portions are normal. LIVER: Liver measures 15 cm. No nodular surface contour. Normal echotexture. No gross solid or cystic lesion detected. No intrahepatic biliary ductal dilatation. GALLBLADDER: Fluid-filled. No distended. No pericholecystic fluid collection or gallbladder wall thickening. COMMON BILE DUCT: 3 mm. RIGHT KIDNEY: 9 cm. Renal cortical thinning. Mild increased echotexture. No gross hydronephrosis. No gross solid or cystic lesion detected. . LEFT KIDNEY: 10 cm. Renal cortical thinning. Normal echotexture. No gross hydronephrosis. No gross solid or cystic lesion detected. . SPLEEN: 12 cm. FREE FLUID: None. US/US abdomen complete IMPRESSION: Up to normal limits spleen. Normal appearance liver. No cholelithiasis. No choledocholithiasis. No hydronephrosis. No ascites. Electronically signed by: Stanton Slaughter MD 11/12/2024 09:52 AM EDT
--- OUTSIDE RECORDS SUMMARY | 2024-11-12 08:28 | XMS_ITS | Encounter Summary ---
Author Organization [facility] Address [address] [address] Phone Care Team Providers Care Marine Superintendent Name Role Phone Johana Anderson MD Primary Care Provider U nickolas Encounter Details Date Type Department Care Team (Late Contact Info) Description 11/05/2024 Orders Only [facility] [address] [place] [phone] Yousif Alejandre MD [address] [address] Stage 3a chronic kidney disease (HCC) Social History Tobacco Use Types Packs/Day Years Used Date Smoking Tobacco: Never Smokeless Tobacco: Never Alcohol Use Standard Drinks/Week Comments Not Currently 0 (1 standard drink = 0.6 oz pur e alcohol) Sex and Gender Information Value Date Recorded Sex Assigned at Not on file Legal Sex Male 8:47 AM EST Gender Identity Not on file Sexual Orientation Not on file documented as of this encounter Plan of Treatment Upcoming Encounters Date Type Department Care Team (Late Contact Info) Description 05/14/2025 1:15 PM EST Office Visit [facility] [address] [place] [address] Yousif Alejandre MD [address] [phone] documented as of this encounter Visit Diagnoses Diagnosis Stage 3a chronic kidney disease (HCC) documented in this encounter Care Teams Marine Superintendent Relationship Specialty Start Date End Date Johana Anderson MD [address] [place] [address], [place] [address] PCP - General Family Medicine 06/01/22 documented as of this encounter
--- OUTSIDE RECORDS SUMMARY | 2024-11-12 08:28 | XMS_ITS | Encounter Summary ---
Author Organization [employer] Address [address] [place] [address] Care Team Providers Care Lock Setter Name Role Phone Johana Anderson MD Primary Care Provider + [phone] Liliana George PharmD Unavailable [phone] Yousif Trinidad MD Unavailable [phone] July Unavailable Stuart Caal MD Unavailable [phone] Sudheer Ellison MD Unavailable [phone] Reason for Visit * Reason Comments Med Refill Encounter Details Date Type Department Care Team (Late st Contact Info) Description 10/25/2024 Refill [facility] [address] [place], [place] [phone] Johana Anderson MD [address] [place] [address] Mild intermittent asthma, uncomplicated Social History Tobacco [...] Description 11/14/2024 10:30 AM EDT Clinical Support [facility] [address] [place] [phone] Ada Lerma RN [address] [place] [address] documented as of this encounter Goals Goal [...] documented as of this encounter Care Teams Lock Setter Relationship Specialty Start Date End Date Johana Anderson MD [address] [place] [address] PCP - General Family Medicine 04/23/18 Liliana George, Ranjan [address] [place] [address] Pharmacist Internal Medicine 04/13/22 Yousif Trinidad MD [address] [place] [phone] Nephrology 09/19/24July [address]rd [place] [address] Gastroenterology 09/19/24 Stuart Caal MD [address] [place] [address] Cardiology 09/19/24 Sudheer Ellison MD [address] [place] [address] Ophthalmology 09/19/24 [facility] Orthopaedic Surgery 09/19/24 documented as of this encounter
--- OUTSIDE RECORDS SUMMARY | 2024-11-12 08:29 | XMS_ITS | Clinical Summary ---
Author Organization [facility] Address [address] [address] Phone Care Team Providers Care Market Master Name Role Phone Pcp, Unknown Primary Care Provider Unavailabl e Allergies Active Allergy Reactions Criticality Noted Date Comments Lisinopril 03/27/2022 Shellfish Containing Products 2021 Medications metFORMIN (GLUCOPHAGE-XR) 500 MG 24 hr tablet Take 500 mg by mouth daily with dinner. Active Social History Tobacco Use Types Packs/Day Years Used Date Smoking Tobacco: Never Smokeless Tobacco: Never Tobacco Cessation:Counseling Given: Not Answered Alcohol Use Standard Drinks/Week Comments Never 0 (1 standard drink = 0.6 oz pur e alcohol) Education Answer Date Recorded Are you interested in more education? Not on estefani e 08/18/2022 Are you concerned about learning? Not on file 08/18/2022 No 08/18/2022 No 08/18/2022 Digital Access Answer Date Recorded No 09/18/2022 No 09/18/2022 No 09/18/2022 Reliable internet access at home? Not on file 09/18/2022 Device with a working camera? Not on file Sex and Gender Information Value Date Recorded Sex Assigned at Male 03/27/2022 8:16 AM EST Legal Sex Male 9:47 PM EDT Gender Identity Male 03/27/2022 8:16 AM EST Sexual Orientation Not on file Last Filed Vital Signs Vital Sign Reading Time Taken Comments Blood Pressure 110/68 03/27/2022 4:16 PM EST Pulse 70 03/27/2022 4:16 PM EST Temperature 36.4 C (97.5 F) 03/27/2022 8:13 AM EST Respiratory Rate 18 03/27/2022 4:16 PM EST Oxygen Saturation 99% 03/27/2022 4:16 PM EST Inhaled Oxygen Concentration - - Weight 67.1 kg (148 lb) 03/27/2022 8:11 AM EST Height 152.4 cm (5') 03/27/2022 8:11 AM EST Body Mass Index 28.9 03/27/2022 8:11 AM EST Plan of Treatment Health Maintenance Due Date Last Done Comments DEPRESSION SCREENING 1972 HEPATITIS C SCREENING 1978 HIV ONE-TIME SCREENING (18-65 YEARS) 1978 COLOGUARD 2005 COLONOSCOPY 2005 COLORECTAL CANCER SCREENING 2005 FIT TEST 2005 FOBT 2005 SIGMOIDOSCOPY 2005 VIRTUAL COLONOSCOPY 2005 PNEUMOCOCCAL VACCINES (50+ years) (2 of 2 - PCV) 01/10/2015 01/10/2014, 05/08/2008 Adult Td,Tdap Booster 10/11/2021 10/12/2011 CREATININE LEVEL 03/27/2023 03/27/2022 COVID-19 VACCINE ( season) 2023 04/26/2022, 05/23/2021, 07/21/2020, Additional history exists SCREENING FOR DIABETES 04/26/2025 04/26/2022 LIPID PANEL 04/26/2027 04/26/2022 RSV VACCINE (1 - 1-dose 75+ series) 08/25/2035 ZOSTER VACCINES Completed 09/29/2021, 07/07/2021 SMOKING STATUS SCREENING (Once After 26 Yrs) Completed 03/27/2022 HEPATITIS A VACCINES Aged Out No long er eligible based on patient's age to complete this topic HIB VACCINES Aged Out No longer eligi ble based on patient's age to complete this topic MENINGOCOCCAL VACCINES (ACWY) Aged Out No longer eligible based on patient's age to complete this topic MENINGOCOCCAL VACCINES (B) Aged Out N o longer eligible based on patient's age to complete this topic Medical Devices Not on file Procedures Procedure Name Priority Date/Time Associated Diagnosis Comments BASIC METABOLIC PANEL STAT 03/27/2022 8:23 AM EST from Last 3 Months or Most Recently Relevant to Health Maintenance Results * (ABNORMAL) Basic metabolic panel (03/27/2022 8:23 AM EST) SODIUM 136 133 - 146 mmol/L [facility] CHLORIDE 98 96 - 108 mmol/L [facility] POTASSIUM 3.9 3.3 - 5.1 mmol/L [facility] CO2 26 21 - 35 mmol/L [facility] BUN 22(H) 6 - 19 mg/dL [facility] CREATININE 1.90(H) 0.5 - 1.5 mg/dL [facility] GLUCOSE 142(H) 70 - 99 mg/dL [facility] CALCIUM 9.4 8.4 - 10.3 mg/dL [facility] EGFR 40(L) >59 mL/min/1.7 3m2 [facility] Comment:Estimated glomerular filtration rate calculated using the CKD-EPI refit equation. ANION GAP 16 10 - 20 mmol/L [facility] Blood 03/27/2022 8:23 AM EST 03/27/2022 10:28 AM EST us Brian Waters MD LAB BLOOD ORDERABLES Final Re sult [facility] [address] [place], [place] [phone] from Last 3 Months or Most Recently Relevant to Health Maintenance Insurance [facility] [employer] MEDICARE REPLACEMENT FARRAH SERRANO [facility] [place] [address] [place] [address] MEDICARE REPLACEMENT [facility] MEDICARE REPLACEMENT [facility] MEDICARE REPLACEMENT Care Teams Market Master Relationship Specialty Start Date End Date Pcp, Unknown PCP - General 03/27/22 Additional Source Comments The information contained in this document represents components of the legal health record. It is not the complete legal health record.[facility]
== END 2024-11-12 08:18 | disposition home or self-care (01) ==
LOC: HO.US 08:17
PROVIDERS: PCP Family Medicine; Visit Provider Family Medicine
DX: R74.01 Elevation of levels of liver transaminase levels (principal)
CPT/HCPCS: 76700

== ENCOUNTER → 2024-11-12 08:20 | Outpatient (BNV) | payer OTHER, SELFPAY | PROVIDERS: PCP Family Medicine; Visit Provider Radiology Diagnostic Radiology | DX: R74.01 Elevation of levels of liver transaminase levels (principal) | CPT/HCPCS: 76700 ==